=== PATIENT | male | born 1985 | race African-American/Black ===

== ENCOUNTER 2020-01-14 03:14 | Emergency (ER) | payer OTHER ==
[2020-01-14 04:20] LABS: ALBUMIN 4.5 g/dL (3.5-5.0); ALKALINE PHOSPHATASE 62 U/L (38-126); ANION GAP 6 (5-19); ASPARTATE AMINO TRANSFERASE 25 U/L (17-59); BILIRUBIN,TOTAL 0.5 mg/dL (0.2-1.3); BLOOD UREA NITROGEN 10 mg/dL (7-20); CALCIUM 9.7 mg/dL (8.4-10.2); CARBON DIOXIDE 27 mmol/L (22-30); CHLORIDE 105 mmol/L (98-107); CREATINE KINASE 76 U/L (55-170); GLUCOSE 103 mg/dL (75-110); POTASSIUM 4.4 mmol/L (3.6-5.0); TOTAL PROTEIN 7.5 g/dL (6.3-8.2)
[2020-01-14 04:21] LABS: HEMATOCRIT 42.4 % (37.9-51.0); MEAN CORPUSCULAR HEMOGLOBIN 30.5 pg (27.0-33.4); MEAN CORPUSCULAR HGB CONC 33.1 g/dL (32.0-36.0); MEAN CORPUSCULAR VOLUME 92 fl (80-97); PLATELET COUNT 337 10^3/uL (150-450); RED CELL DISTRIBUTION WIDTH 12.9 % (11.5-14.0); WHITE BLOOD COUNT 7.7 10^3/uL (4.0-10.5)
[2020-01-14 04:32] LABS: CREATINE KINASE MB 0.26 ng/mL (<4.55)
[2020-01-14 04:35] LABS: TROPONIN I < 0.012 ng/mL
[2020-01-14 04:49] LABS: ABSOLUTE MONOCYTES # (MANUAL) 0.8 10^3/uL (0.1-1.4); BASOPHILS % (MANUAL) 0 % (0-2); EOSINOPHILS % (MANUAL) 2 % (0-6); LYMPHOCYTES % (MANUAL) 52 % (13-45); MONOCYTES % (MANUAL) 10 % (3-13); SEGMENTED NEUTROPHILS % (MAN) 36 % (42-78); TOTAL CELLS COUNTED 100
[2020-01-14 04:51] LABS: ANISOCYTOSIS SLIGHT; OVALOCYTES SLIGHT; PLATELET COMMENT ADEQUATE; POIKILOCYTOSIS SLIGHT
[2020-01-14 04:52] LABS: TOXIC VACUOLATION PRESENT
--- NOTE | 2020-01-14 08:07 | EKG REPORT ---
SEVERITY:- ABNORMAL ECG - SINUS RHYTHM BORDERLINE LEFT AXIS DEVIATION NONSPECIFIC T ABNORMALITIES, INFERIOR LEADS : Confirmed by: Connor Ragsdale 14-Jan-2020 08:07:12
--- NOTE | 2020-01-14 08:08 | ER Document Report ---
Entered by AARON JORGE SCRIBE 01/14/20 0741 Acting as scribe for:ALBERTO SANTOS MD ED General - General Chief Complaint: Chest Pain Stated Complaint: SHOULDER PAIN Time Seen by Provider: 01/14/20 07:08 Mode of Arrival: Ambulatory Information source: Patient Notes: This 34 year old male patient presents to the emergency department today with complaints of right sided chest pain as well as right upper extremity pain last night just before going to sleep at around 2:00 AM. Patient reports that he was lying down in bed last night with his right arm up in the air and he noticed that his right shoulder "felt warm and tingly" and he then developed right parasternal pain that comes and goes. Patient mentions that at 5:30 PM yesterday he had 20 seconds worth of abdominal pain as well but he has not had it since this brief episode. Patient also adds that he can "see the blue color of his veins in his arms which he has never been able to do in the past". Patient mentions that 2 weeks ago when he was driving to [place], about 45 minutes into the trip he developed a numbness and tingling from about the level of the calf on the left up to his thigh as well as left shoulder tingling and he sought medical care after arriving in [place] and he was told it was pinched nerves. - Related Data Allergies/Adverse Reactions: No Known Allergies Allergy (Unverified 01/14/20 03:20) Past Medical History - General Information source: Patient - Social History Smoking Status: Current Every Day Smoker Cigarette use (# per day): Yes - 1/3 Chew tobacco use (# tins/day): No Frequency of alcohol use: None Drug Abuse: None Lives with: Family Family History: Reviewed & Not Pertinent - Medical History Medical History: Negative Past Surgical History: Reports: Hx Inguinal Hernia - left, repaired, Hx Oral Surgery Review of Systems - Review of Systems Constitutional: No symptoms reported EENT: No symptoms reported Cardiovascular: See HPI, Chest pain Respiratory: No symptoms reported Gastrointestinal: See HPI, Abdominal pain Genitourinary: No symptoms reported Male Genitourinary: No symptoms reported Musculoskeletal: See HPI, Muscle pain, Muscle stiffness Skin: No symptoms reported Hematologic/Lymphatic: No symptoms reported Neurological/Psychological: See HPI, Tingling -: Yes All other systems reviewed and negative Physical Exam - Vital signs Vitals: Temp Pulse Resp BP Pulse Ox 97.9 F 57 L 18 147/92 H 98 01/14/20 03:19 01/14/20 03:19 01/14/20 03:19 01/14/20 03:19 01/14/20 03:19 - Notes Notes: Physical Exam: General: Alert, appears well. HEENT: Normocephalic. Atraumatic. PERRL. Extraocular movements intact. Or opharynx clear. Neck: Supple. Non-tender. Respiratory: No respiratory distress. Clear and equal breath sounds bilaterally. Cardiovascular: Regular rate and rhythm. Abdominal: Normal Inspection. Non-tender. No distension. Normal Bowel Sounds. Back: No gross abnormalities. Extremities: Moves all four extremities. Upper extremities: Normal inspection. Normal ROM. Lower extremities: Normal inspection. No edema. Normal ROM. Neurological: Normal cognition. AAOx4. Normal speech. Psychological: Normal affect. Normal Mood. Skin: Warm. Dry. Normal color. Course - Re-evaluation Re-evalutation: 01/14/20 08:46 Patient was also concerned about blood clots. D-dimer is undetectable. Serial troponins are undetectable. EKG does not show acute changes. At this time the patient's history and complaints did not point to any particular diagnosis. - Vital Signs Vital signs: Temp Pulse Resp BP Pulse Ox 97.9 F 58 L 16 139/79 H 95 01/14/20 06:47 01/14/20 06:47 01/14/20 06:47 01/14/20 06:47 01/14/20 06:47 - Laboratory Result Diagrams: 01/14/20 03:36 01/14/20 03:36 Laboratory results interpreted by me: 01/14/20 03:36 Seg Neuts % (Manual) 36 L Lymphocytes % (Manual) 52 H - Diagnostic Test Radiology reviewed: Image reviewed - Chest x-ray does not show acute cardiopulmonary abnormality - EKG Interpretation by Wy EKG shows normal: Sinus rhythm, Elsie, Intervals, QRS Complexes. abnormal: ST-T Waves - Nonspecific inferior T abnormalities Rate: Normal - 59 Rhythm: NSR Elsie/QRS: Left axis deviation Discharge - Discharge Clinical Impression: Numbness and tingling of left upper and lower extremity, Right upper extremity tingling Chest pain Qualifiers: Chest pain type: unspecified Qualified Code(s): R07.9 - Chest pain, unspecified Condition: Stable Disposition: HOME, SELF-CARE Additional Instructions: Chest Pain of Unclear Cause The exact cause of your chest pain isn't clear. Fortunately, there is no evidence of a dangerous medical condition. Further testing may be required to find the source of the pain. Most often, we find that this pain is coming from the chest wall -- the muscles or rib joints in the chest. But chest pain can come from the lung and lung lining, the esophagus, the heart valves or heart lining, and even the stomach or gallbladder. Rest. Eat lightly until the pain is gone. We may prescribe medicine for pain and inflammation. You should call the physician immediately if the pain radiates to the shoulder, jaw or arms; if you start to run a fever or develop a cough; or if you develop shortness of breath, or other new or alarming symptoms. Tingling to Extremities: There is no obvious explanation for the tingling sensations you had noticed in your left upper and lower extremities, and your right shoulder region. A "pinched nerve" would not cause the sensations you are feeling in three different extremities. Follow-up with a local primary care provider if you continue to have the symptoms, especially if they become more persistent as a diagnosis may be easier to ascertain if that does happen. RETURN TO THE EMERGENCY ROOM IF ANY NEW OR WORSENING SYMPTOMS. Forms: Return to Work I personally performed the services described in the documentation, reviewed and edited the documentation which was dictated to the scribe in my presence, and it accurately records my words and actions.
--- NOTE | 2020-01-14 09:18 | RADIOLOGY REPORT (SQ) ---
EXAM DESCRIPTION: CHEST SINGLE VIEW IMAGES COMPLETED DATE/TIME: 01/14/2020 9:10 am REASON FOR STUDY: chest pain COMPARISON: None. EXAM PARAMETERS: NUMBER OF VIEWS: One view. TECHNIQUE: Single frontal radiographic view of the chest acquired. RADIATION DOSE: NA LIMITATIONS: None. FINDINGS: LUNGS AND PLEURA: No opacities, masses or pneumothorax. No pleural effusion. MEDIASTINUM AND HILAR STRUCTURES: No masses. Contour normal. HEART AND VASCULAR STRUCTURES: Heart normal in size. Normal vasculature. BONES: No acute findings. HARDWARE: None in the chest. OTHER: No other significant finding. IMPRESSION: NO ACUTE RADIOGRAPHIC FINDING IN THE CHEST. TECHNICAL DOCUMENTATION: JOB ID: [id number] 2010 [employer]- All Rights Reserved Reading location - IP/workstation name: [email or web address]
[2020-01-14 10:21] VITALS: BP 109/84
== END 2020-01-14 09:47 | disposition home or self-care (01) ==
LOC: ER 03:14
DX: R07.9 Chest pain, unspecified (principal); R20.0 Anesthesia of skin; R20.2 Paresthesia of skin; M79.601 Pain in right arm; M79.10 Myalgia, unspecified site; R10.9 Unspecified abdominal pain; F17.210 Nicotine dependence, cigarettes, uncomplicated
CPT/HCPCS: 36415; 71045; 80053; 82550; 82553; 84484; 85025; 85379; 93005; 93010; 99285